=== PATIENT | female | born 2000 | race Caucasian/White ===

== ENCOUNTER 2021-04-20 13:30 | Emergency (ER) | payer OTHER ==
[~2021-04-20] VITALS: Ht 157.5 cm; Wt 68.1 kg
[2021-04-20 13:36] VITALS: BP 118/72
--- NOTE | 2021-04-20 14:41 | PHYS DOC ---
Past History Past Surgical History: Alcohol Use: None Adult General Chief Complaint Chief Complaint: UPPER EXTREMITY PAIN HPI HPI Patient is a 21-year-old female with no significant medical history presented to the ED today complaining of a dull intermittent left upper extremity pain from the shoulder to the elbow, symptoms have been going on for over 2 weeks. P atient states pain is worse when lifting her 8-month-old baby. Patient states occasionally the pain goes away for a couple days then returns. Denies any injuries. Denies any pain radiating to the neck or the chest. Review of Systems Review of Systems Constitutional: Denies fever or chills [] Eyes: Denies change in visual acuity, redness, or eye pain [] HENT: Denies nasal congestion or sore throat [] Respiratory: Denies cough or shortness of breath [] Cardiovascular: No additional information not addressed in HPI [] GI: Denies abdominal pain, nausea, vomiting, bloody stools or diarrhea [] : Denies dysuria or hematuria [] Musculoskeletal: Reports left upper extremity pain denies back pain Integument: Denies rash or skin lesions [] Neurologic: Denies headache, focal weakness or sensory changes [] All other systems were reviewed and found to be within normal limits, except as documented in this note. Physical Exam Physical Exam Constitutional: Well developed, well nourished, no acute distress, non-toxic appearance. [] HENT: Normocephalic, atraumatic, bilateral external ears normal, oropharynx moist, no oral exudates, nose normal. [] Eyes: PERRLA, EOMI, conjunctiva normal, no discharge. [] Neck: Normal range of motion, no tenderness, supple, no stridor. [] Cardiovascular:Heart rate regular rhythm, no murmur [] Lungs & Thorax: Bilateral breath sounds clear to auscultation [] Abdomen: Bowel sounds normal, soft, no tenderness, no masses, no pulsatile masses. [] Skin: Warm, dry, no erythema, no rash. [] Back: No tenderness, no CVA tenderness. [] Extremities: No tenderness, no cyanosis, no clubbing, ROM intact, no edema. [] Neurologic: Alert and oriented X 3, normal motor function, normal sensory function, no focal deficits noted. [] Psychologic: Affect normal, judgement normal, mood normal. [] Current Patient Data Vital Signs Vital Signs Date Time Temp Pulse Resp B/P (MAP) Pulse Ox O2 Delivery O2 Flow Rate FiO2 04/20/21 13:36 98.3 82 16 118/72 (87) Room Air EKG EKG [address] Hughes sinus rhythm heart rate 85 no STEMI [] Radiology/Procedures Radiology/Procedures [] Heart Score C/O Chest Pain: N/A Risk Factors: Risk Factors: DM, Current or recent (<one month) smoker, HTN, HLP, family h istory of CAD, obesity. Risk Scores: Risk Factors: DM, Current or recent (<one month) smoker, HTN, HLP, family history of CAD, obesity. Course & Med Decision Making Course & Med Decision Making Pertinent Labs and Imaging studies reviewed. (See chart for details) This is a 21-year-old female patient presented to the ED today complaining of left upper extremity pain specifically from the left elbow to the left shoulder, symptoms have been going on for over 2 weeks intermittently. Pain is worse when she lifts her daughter. 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 EKG is negative. PERC score 0, low risk well score. Reassured patient. Encourage her to ice and elevate the extremity. To let the help with lifting her baby. Recommended [id number]. Flexeril prescription provided Dragon Disclaimer Dragon Disclaimer This electronic medical record was generated, in whole or in part, using a voice recognition dictation system. PERC Rule for PE PERC Rule for PE Response (Comments) Value Age > 50: No 0 HR > 100: No 0 Sa02 on room air <95%: No 0 Unilateral leg swelling: No 0 Hemoptysis: No 0 Recent surgery or trauma: No 0 Prior PE or DVT: No 0 Hormone use: No 0 Total 0 Departure Departure: Impression: Primary Impression: Left upper arm pain Disposition: 01 HOME / SELF CARE / HOMELESS Condition: STABLE Referrals: PCP,NO (PCP) Follow-up with your doctor in 1 to 2 months Patient Instructions: Musculoskeletal Pain Additional Instructions: You were evaluated in the emergency room for left upper extremity pain. Your EKG is normal. Please talk to your and ask him to help with the care of the baby as well as house chores. Try to rest your left upper extremity. You can apply heat or ice to the left upper extremity. Continue taking the left upper extremity through full range of motion. Take the medicines ordered as prescribed Scripts Naproxen (NAPROXEN) 500 Mg Tablet 1 TAB PO BID for pain, #14 TAB 0 Refills Prov: DOM HALL APRN 04/20/21 Cyclobenzaprine Hcl (CYCLOBENZAPRINE HCL) 10 Mg Tablet 1 TAB PO TID, #30 TAB Prov: DOM HALL APRN 04/20/21 DOM HALL APRN Apr 20, 2021 14:41
[2021-04-20] MEDS ORDERED: NAPR-514 PO (14:44)
[2021-04-20] MEDS ORDERED: CYCL10TA19 PO (14:44)
--- NOTE | 2021-04-21 03:55 | EKG ---
[address] [address] Test Date: 2021-04-20 Test Time: 14:15:05 Pat Name: JUNE SIFUENTES Department: Room: Gender: F [employer]: : 2000 Requested By: DOM HALL Order Number: [id number] Reading MD: Ryland Gonzales Measurements Intervals [place] Rate: 85 P: -31 WV: 148 QRS: 56 QRSD: 92 T: 33 QT: 372 QTc: 448 Interpretive Statements SINUS RHYTHM NORMAL ECG RI6.02 No previous ECG available for comparison Electronically Signed On 04-23-2021 9:20:18 [employer]ENDING [employer]IVER by Ryland Gonzales
== END 2021-04-20 15:11 | disposition home or self-care (01) ==
LOC: ER 13:30
DX: M79.622 Pain in left upper arm (principal)
CPT/HCPCS: 93005; 99283-25

== ENCOUNTER 2021-08-29 19:38 | Emergency (ER) | payer OTHER ==
[~2021-08-29] VITALS: Ht 157.5 cm; Wt 66.0 kg
[~2021-08-29 19:38] MED LIST: CYCL10TA19 PO; NAPR-514 PO
[2021-08-29] MEDS ORDERED: IV RINGERS SOLUTION,LACTATED 1,000 ML IV ONE (20:00)
[2021-08-29] MEDS ORDERED: ONDANSETRON PF 4 MG/2 ML VIAL. IVP ONE (20:00)
[2021-08-29] MEDS ORDERED: IV NORMAL SALINE 1,000ML 1,000 ML IV ONE (20:00)
[2021-08-29] MEDS ORDERED: ACETAMINOPHEN 325 MG TABLET PO ONE (20:00)
[2021-08-29 20:23] LABS: BASO % 0 % (0-3); EOS % 0 % (0-3); HEMATOCRIT 42.1 % (36.0-47.0); HEMOGLOBIN 14.1 g/dL (12.0-15.5); LYMPH # 0.6 x10^3/uL (1.0-4.8); LYMPH % 8 % (24-48); MEAN CORPUSCULAR HEMOGLOBIN 28 pg (25-35); MEAN CORPUSCULAR HGB CONC 34 g/dL (31-37); MEAN CORPUSCULAR VOLUME 84 fL (79-100); MONO # 0.5 x10^3/uL (0.0-1.1); MONO % 7 % (0-9); NEUT # 6.3 x10^3uL (1.8-7.7); NEUT % 85 % (31-73); PLATELET COUNT 228 x10^3/uL (140-400); RED CELL DISTRIBUTION WIDTH 13.4 % (11.5-14.5); WHITE BLOOD COUNT 7.4 x10^3/uL (4.0-11.0)
--- NOTE | 2021-08-29 20:24 | PHYS DOC ---
Past History Past Surgical History: (JENNIFER CASTRO APRN) Alcohol Use: None (JENNIFER CASTRO APRN) General Adult EDM: Chief Complaint: NAUSEA/VOMITING/DIARRHEA HPI: HPI: Patient is a 21-year-old female who presents the emergency department with chills, nausea, vomiting and bilateral flank pain that started yesterday. Patient reports that she started her menstrual cycle yesterday and she is having bilateral breast tenderness which she typically experiences with her menses. Patient denies any heavy vaginal bleeding, abdominal pain, pelvic pain, dysuria, diarrhea, vaginal discharge, cough, fever, sick exposure. (JENNIFER CASTRO APRN) Review of Systems: Review of Systems: Constitutional: See HPI Respiratory: See HPI GI: See HPI : See HPI Musculoskeletal: See HPI Integument: Denies redness or lesions to breast (JENNIFER CASTRO APRN) Current Medications: Current Meds: Current Medications Medications (Trade) Dose Ordered Sig/Elma Start Time Stop Time Status Last Admin Dose Admin Acetaminophen (Tylenol) 650 mg 1X ONCE 08/29/21 20:00 08/29/21 20:17 DC 08/29/21 20:00 650 MG Lactated Ringer's 1,000 ml @ 1,000 mls/hr 1X ONCE 08/29/21 20:00 08/29/21 20:59 08/29/21 20:00 1,000 MLS/HR Ondansetron HCl (Zofran) 4 mg 1X ONCE 08/29/21 20:00 08/29/21 20:17 DC 08/29/21 20:00 4 MG Sodium Chloride 1,000 ml @ 1,000 mls/hr 1X ONCE 08/29/21 20:00 08/29/21 19:55 DC (JENNIFER CASTRO APRN) Allergies: Allergies: Allergies Coded Allergies Type Severity Reaction Last Updated Verified No Known Drug Allergies 08/29/21 No (JENNIFER CASTRO APRN) Physical Exam: PE: Constitutional: Well developed, well nourished, no acute distress, non-toxic appearance. [] HENT: Normocephalic, atraumatic, bilateral external ears normal, oropharynx moist, no oral exudates, nose normal. [] Eyes: PERRL, EOMI, conjunctiva normal, no discharge. [] Neck: Normal range of motion, no stridor Cardiovascular:Heart rate regular rhythm, no murmur [] Lungs & Thorax: Bilateral breath sounds clear to auscultation, no lesions redness/warmth/swelling of breasts, no masses palpated [] Abdomen: Bowel sounds normal, soft, no tenderness, no abdominal guarding or rigidity, no masses, no pulsatile masses. [] Skin: Warm, dry, no erythema, no rash. [] Back: No tenderness, no CVA tenderness. [] Extremities: No tenderness, no cyanosis, no clubbing, ROM intact, no edema. [] Neurologic: Alert and oriented X 3, normal motor function, normal sensory function, no focal deficits noted. [] Psychologic: Affect normal, judgement normal, mood normal. [] (JENNIFER CASTRO APRN) Current Patient Data: Labs: Laboratory Tests Test 08/29/21 19:14 POC Urine HCG, Qualitative hcg negative (Negative) Vital Signs: Vital Signs Date Time Temp Pulse Resp B/P (MAP) Pulse Ox O2 Delivery O2 Flow Rate FiO2 08/29/21 19:46 99.1 126 16 137/71 (93) 98 Room Air (JENNIFER CASTRO APRN) EKG: EKG: [] (JENNIFER CASTRO APRN) Radiology/Procedures: Radiology/Procedures: [] (JENNIFER CASTRO APRN) Heart Score: C/O Chest Pain: N/A Risk Factors: Risk Factors: DM, Current or recent (<one month) smoker, HTN, HLP, family history of CAD, obesity. Risk Scores: Score 0 - 3: 2.5% MACE over next 6 weeks - Discharge Home Score 4 - 6: 20.3% MACE over next 6 weeks - Admit for Clinical Observation Score 7 - 10: 72.7% MACE over next 6 weeks - Early Invasive Strategies (JENNIFER CASTRO APRN) Course & Med Decision Making: Course & Med Decision Making Pertinent Labs and Imaging studies reviewed. (See chart for details) [] Patient presents to the emergency department for chills, nausea, vomiting and bilateral flank pain that started yesterday. Work-up in the ER consisted of blood work including lipase, urinalysis. Patient denies abdominal pain, pelvic pain and has a reassuring abdominal exam. She reports bilateral back pain but has no CVA tenderness. She reports no history of kidney stones. Patient treated with IV fluids, nausea medication pain medication. Following treatment in the emergency department, her symptoms have improved. Her heart rate has decreased to 100 bpm. She is able to tolerate oral intake. BC was unremarkable. Patient's potassium was 3.1 this was placed in the emergency department with oral supplementation. Patient's remainder of CMP and lipase was unremarkable. Urinalysis shows few bacteria and 5-10 white blood cells but this too bloody due to menses to determine if patient had leukocytes or nitrites. Discussed with supervising physician. Patient will be treated for pyelonephritis with an antibiotic. Patient advised to increase fluids and avoid bladder irritants. To be discharged home with pain medication and nausea medication. I discussed with patient all findings and diagnostic testing as well as the need to follow-up with PCP for further evaluation and treatment or return to the ER if any new or worsening symptoms. Strict return precautions were also discussed at length. Patient voiced understanding and agreement with the plan. Patient is hemodynamically stable at the time of disposition. (JENNIFER CASTRO APRN) Course & Med Decision Making Did not see or evaluate patient. Did not discuss patient with CONSULTING IT ARCHITECT. Generally agree with CONSULTING IT ARCHITECT's work-up and disposition per note. (NADEEN CURRIE MD) Dragon Disclaimer: Dragon Disclaimer: This electronic medical record was generated, in whole or in part, using a voice recognition dictation system. (JENNIFER CASTRO APRN) Departure Departure: Impression: Primary Impression: Pyelonephritis Disposition: 01 HOME / SELF CARE / HOMELESS Condition: GOOD Referrals: PCP,NO (PCP) Patient Instructions: Pyelonephritis, Adult Additional Instructions: You were seen in the emergency department today for chills, nausea and back pain. You were noted to have a kidney infection which will be treated with an antibiotic. Please start and finish the antibiotic completely. Increase your fluids and avoid bladder irritants like caffeine, sugary beverages or alcohol. You are being discharged home with nausea medication you can take as needed. For any chills or fevers take Tylenol and ibuprofen at home. Your potassium was mildly low in the emergency department, please make sure that you are eating potassium rich foods like green leafy vegetables and bananas. You are also being discharged home with pain medication that you can take for severe pain. Notes this medication contains Tylenol so do not take any additional Tylenol wi th this medication. This medication may cause sedation so do not take need to be alert, driving a vehicle or with alcohol. Please follow-up with your primary care provider tomorrow regarding your ER visit. Return to the emergency department if you develop abdominal pain, pelvic pain, intractable nausea or vomiting, high fevers refractory to treatment, increased vaginal bleeding, lightheadedness or any new or worsening concerns. Scripts Cefdinir (CEFDINIR) 300 Mg Capsule 1 CAP PO BID for infection for 10 Days, #20 CAP 0 Refills Prov: JENNIFER CASTRO APRN 08/29/21 JENNIFER CASTRO APRN Aug 29, 2021 20:24 NADEEN CURRIE MD Aug 29, 2021 21:32
[2021-08-29 20:31] LABS: CALCIUM 8.6 mg/dL (8.5-10.1); CREATININE 0.6 mg/dL (0.6-1.0); POTASSIUM 3.1 mmol/L (3.5-5.1)
[2021-08-29 20:37] LABS: ALBUMIN 4.2 g/dL (3.4-5.0); ALBUMIN/GLOBULIN RATIO 1.2 (1.0-1.7); TOTAL BILIRUBIN 0.7 mg/dL (0.2-1.0); TOTAL PROTEIN 7.8 g/dL (6.4-8.2)
[2021-08-29 21:00] LABS: BACTERIA,URINE FEW /HPF (0-FEW); CLARITY,URINE CLOUDY; COLOR,URINE RED; RBC,URINE 20-40 /HPF (0-2)
[2021-08-29 21:09] VITALS: BP 101/73
[2021-08-29] MEDS ORDERED: POTASSIUM CHLORIDE 20 MEQ TABLET.ER. PO ONE (21:15)
[2021-08-29] MEDS ORDERED: CEFD300C PO (21:18)
== END 2021-08-29 21:30 | disposition home or self-care (01) ==
LOC: ER 19:38
DX: N12 Tubulo-interstitial nephritis, not specified as acute or chronic (principal); Z98.890 Other specified postprocedural states
CPT/HCPCS: 36415; 80053; 81001; 81025; 83690; 85025; 87086; 96361; 96374; 99283; J2405; J7120